=== PATIENT | female | born 2000 | race Caucasian/White ===

== ENCOUNTER → 2019-03-27 11:17 | Outpatient (CLI) | payer OTHER, SELFPAY ==
[2019-03-27 12:23] LABS: Hematocrit 38.6 % (37-47); Hemoglobin 12.7 g/dL (12.0-15.0); Mean Corp Hgb Conc 32.9 g/dL (32-36); Mean Corpuscular Hgb 28.6 pg (27.0-32.0); Mean Corpuscular Volume 86.9 fL (81-99); Mean Platelet Vol. 9.9 fl (6.2-12.0); Platelet Count 252 K/mm3 (150-450); RBC Distribution Width CV 12.3 % (11.6-14.6); RBC Distribution Width SD 39.2 fl (35.1-43.9); Red Blood Count 4.44 M/mm3 (4.2-5.4)
[2019-03-27 12:31] LABS: Prothrombin Time (Protime)PT. 13.1 SECONDS (11.7-14.9)
[2019-03-27 12:32] LABS: Partial Thromboplast Time 35.4 Seconds (24.1-36.2)
[2019-03-27 18:40] LABS: Chlamydia Trachomatis by PCR Negative (Negative); Neisserai gonorrhoeae by PCR Negative (Negative); Probe Check PASS; Sample Adequacy Control PASS; Specimen Processing Control PASS
[2019-04-08 11:15] LABS: HPV Reflexed? NOT INDICATED
== END ==
PROVIDERS: Visit Provider Obstetrics & Gynecology
DX: N92.0 Excessive and frequent menstruation with regular cycle (principal); Z11.3 Encounter for screening for infections with a predominantly sexual mode of transmission; Z12.4 Encounter for screening for malignant neoplasm of cervix
CPT/HCPCS: 36415; 85027; 85610; 85730; 87491; 87591; 88175; G0145

== ENCOUNTER → 2019-04-24 06:54 | Outpatient (CLI) | payer OTHER, SELFPAY ==
[2019-04-24 07:35] LABS: Glucose 75GTT - Fasting 85 mg/dL (70-99)
[2019-04-24 08:50] LABS: Glucose 75GTT - 60 minutes 101 mg/dL (100-160)
[2019-04-24 08:51] LABS: Glucose 75GTT - 30 minutes 141 mg/dL (100-160)
[2019-04-24 09:35] LABS: Insulin 75GTT - 60 min 58.8 mU/L (Not Estab)
[2019-04-24 09:35] LABS: Insulin 75GTT - 30 MIN 122.3 mU/L (Not Estab.)
[2019-04-24 09:35] LABS: Insulin 75GTT - Fasting 14.4 mU/L (2.6-37.6)
[2019-04-24 10:13] LABS: Glucose 75GTT - 120 minutes 92 mg/dL (70-140)
[2019-04-24 10:32] LABS: Insulin 75GTT - 120 min 83.3 mU/L (Not Estab.)
== END ==
PROVIDERS: Family Provider Family Medicine; PCP Family Medicine; Referring Provider Obstetrics & Gynecology; Visit Provider Obstetrics & Gynecology
DX: E28.2 Polycystic ovarian syndrome (principal); R73.09 Other abnormal glucose
CPT/HCPCS: 82951; 82952; 83525

== ENCOUNTER → 2019-05-03 08:49 | Outpatient (CLI) | payer OTHER, SELFPAY ==
[2019-05-03 10:16] LABS: Estradiol 35.6 pg/mL; Follicle Stimulating Hormone 4.9 mIU/mL; Free T3 1.6 pg/mL (2.18-3.98); Prolactin 67.4 ng/mL; T4 Free Direct 0.81 ng/dL (0.76-1.46)
[2019-05-06 09:57] LABS: Testosterone, % Free 2.79 % (0.50-2.80); Testosterone, Free 0.73 ng/dL (0.10-0.85); Testosterone, Total 26 ng/dL (8-48)
[2019-05-06 16:14] LABS: DHEA Sulfate 150.2 ug/dL (110.0-431.7)
[2019-05-07 13:51] LABS: 17-Hydroxyprogesterone 80 ng/dL (.)
== END ==
PROVIDERS: Family Provider Family Medicine; PCP Family Medicine; Referring Provider Obstetrics & Gynecology; Visit Provider Obstetrics & Gynecology
DX: N94.6 Dysmenorrhea, unspecified (principal); N92.0 Excessive and frequent menstruation with regular cycle
CPT/HCPCS: 36415; 82533; 82627; 82670; 83001; 83498; 84144; 84146; 84402; 84403; 84439; 84443; 84481; 82626

== ENCOUNTER → 2019-10-03 | Outpatient (CLI) | payer OTHER, SELFPAY ==
[2019-10-03 17:47] LABS: Chlamydia Trachomatis by PCR Negative (Negative); Neisserai gonorrhoeae by PCR Negative (Negative); Probe Check PASS; Sample Adequacy Control PASS; Specimen Processing Control PASS
== END | disposition home or self-care (01) ==
LOC: LABSPEC 14:04
PROVIDERS: PCP Family Medicine; Visit Provider Obstetrics & Gynecology
DX: Z11.3 Encounter for screening for infections with a predominantly sexual mode of transmission (principal)
CPT/HCPCS: 87491; 87591

== ENCOUNTER → 2019-12-01 | Outpatient (CLI) | payer OTHER, SELFPAY ==
--- NOTE | 2019-12-01 08:03 | US_ITS ---
STUDY: ULTRASOUND BREAST - RIGHT REASON FOR EXAM: Female, 19 years old. Pain in the right breast. TECHNIQUE: Axial and longitudinal images of the RIGHT breast were performed with a high resolution ultrasound transducer. # OF IMAGES: 53 COMPARISON: None. FINDINGS: RIGHT Breast: The upper outer half of the right breast was examined by ultrasound. No sonographic abnormality is seen. IMPRESSION: No sonographic abnormality is seen. ASSESSMENT CATEGORY: BIRADS Category 1: Negative. A letter regarding these results will be sent to the patient by the facility within 30 days. Electronically Signed: Hira Burrell, at 8:33 EDT , Service support , STUDY: ULTRASOUND BREAST - LEFT REASON FOR EXAM: Female, 19 years old. Pain in the left breast. TECHNIQUE: Axial and longitudinal images of the LEFT breast were performed with a high resolution ultrasound transducer. # OF IMAGES: 53 COMPARISON: None. FINDINGS: LEFT Breast: The upper outer quadrant of the left breast was examined by ultrasound. No sonographic abnormality is seen. US/Breast Limited Unilateral
== END | disposition home or self-care (01) ==
PROVIDERS: PCP Family Medicine; Visit Provider Obstetrics & Gynecology
DX: N64.4 Mastodynia (principal)
CPT/HCPCS: 76642

== ENCOUNTER → 2021-01-04 | Outpatient (CLI) | payer OTHER, SELFPAY ==
[2021-01-07 03:07] LABS: Chlamydia By Nucleic Acid AMP Negative (Negative)
[2021-01-07 08:03] LABS: Gonococcus By Nucleic Acid AMP Negative (Negative)
== END | disposition home or self-care (01) ==
LOC: LABSPEC 16:23
PROVIDERS: PCP Family Medicine; Visit Provider Obstetrics & Gynecology
DX: Z12.4 Encounter for screening for malignant neoplasm of cervix (principal)
CPT/HCPCS: 87491; 87591

== ENCOUNTER 2021-07-28 15:48 | Outpatient (CLI) | payer OTHER, SELFPAY | END 2021-07-28 23:59 | disposition short-term general hospital (02) | LOC: LABSPEC 15:50 | PROVIDERS: PCP Family Medicine; Visit Provider Otolaryngology | DX: Z11.52 Encounter for screening for COVID-19 (principal) | CPT/HCPCS: 87635; U0003 ==

== ENCOUNTER → 2022-03-10 | Outpatient (CLI) | payer SELFPAY ==
[2022-03-10 13:23] LABS: HIV - WCH Non-Reactive (Nonreactive); Hepatitis B Surface Antigen Non-Reactive (Nonreactive); Hepatitis C Antibody Non-Reactive (Nonreactive); Syphilis Antibodies Non-reactive
[2022-03-13 07:06] LABS: Chlamydia By Nucleic Acid AMP Negative (Negative)
[2022-03-13 10:20] LABS: Gonococcus By Nucleic Acid AMP Negative (Negative)
[2022-03-17 18:48] LABS: HPV Reflexed? NOT INDICATED
== END | disposition home or self-care (01) ==
LOC: WOBLAB 09:10
PROVIDERS: PCP Family Medicine; Visit Provider Student in an Organized Health Care Education/Training Program
DX: Z12.4 Encounter for screening for malignant neoplasm of cervix (principal); Z11.3 Encounter for screening for infections with a predominantly sexual mode of transmission
CPT/HCPCS: 36415; 86703; 86780; 86803; 87340; 87491; 87591; 88175; G0145